=== PATIENT | female | born 1960 | race Caucasian/White ===

== ENCOUNTER 2021-11-15 12:58 | Outpatient (CLI) | payer BC | END 2021-11-15 12:59 | disposition home or self-care (01) | LOC: CSHMRI 12:58 | PROVIDERS: ATTEND Radiology Radiation Oncology | DX: C50.919 Malignant neoplasm of unspecified site of unspecified female breast (principal); C79.51 Secondary malignant neoplasm of bone; R93.7 Abnormal findings on diagnostic imaging of other parts of musculoskeletal system | CPT/HCPCS: 36591; 71260; 74177; 82565; J1642 ==

== ENCOUNTER 2022-05-01 08:23 | Inpatient (IN) | payer BC ==
[2022-05-01 09:38] LABS: SARS-CoV-2 NAA Rapid Test Not Detected (NotDetected)
[2022-05-01 09:39] LABS: Bilirubin Neg (Negative); Blood, Urine 150 (Negative); Clarity Clear (Clear); Glucose, Urine (Dipstick) Normal (Negative); Ketone, Urine Negative (Negative); Leukocyte Negative (Negative); Nitrite Negative (Negative); Protein, Urine (Dipstick) 100 mg/dl (Neg-Trace); Specific Gravity, Urine 1.025 (1.002-1.036); Urobilinogen Normal mg/dL (Less than 2)
[2022-05-01 09:43] LABS: Bacteria/HPF Rare-Few HPF (None Seen); Squamous Epithelial 0-3 HPF (0-3); WBC/HPF None Seen HPF (0-3)
[2022-05-01 09:44] LABS: RBC/HPF 0-3 HPF (0-3)
[2022-05-01 09:45] LABS: Calcium Oxalate Crystals Rare HPF (None Seen)
[2022-05-01] MEDS ORDERED: Acetaminophen 325 MG TAB ONE (10:04)
[2022-05-01] MEDS ORDERED: Ibuprofen 200 MG TAB ONE (10:04)
[2022-05-01 10:07] LABS: Hemoglobin 7.8 g/dL (12.0-15.5); MDiff Complete? YES; Mean Corpuscular HGB CONC 33.6 g/dL (32.0-36.0); Mean Corpuscular Hemoglobin 35.3 pg (27.0-33.0); Mean Platelet Volume 12.1 fl (7.4-10.4); Platelet Count 61 10x3/uL (150-450); RBC Distribution Width 14.7 % (11.5-14.5); Red Blood Cell (RBC) Count 2.21 10x6/uL (3.90-5.03); White Blood Cell (WBC) Count 1.2 10x3/uL (3.5-10.5)
[2022-05-01 10:19] LABS: ALT (SGPT) 23 U/L (8-55); AST (SGOT) 42 U/L (5-34); Albumin 3.2 g/dL (3.4-4.8); Alkaline Phosphatase 71 U/L (40-110); Anion Gap 16 mmol/L (10-20); BUN (Urea Nitrogen) 22 mg/dL (9.8-20.1); Bilirubin, Total 0.4 mg/dL (0.2-1.2); Calc. Creatinine Clearance 0 mL/min (70-130); Calcium 9.1 mg/dL (7.8-10.44); Carbon Dioxide 23 mmol/L (23-31); Chloride 100 mmol/L (98-107); Estimated GFR 49; Globulin 2.8 g/dL (2.4-3.5); Glucose 80 mg/dL (80-115); Sodium 135 mmol/L (136-145)
[2022-05-01 10:41] LABS: Band 1 % (5-11); Lymphocytes 18 % (21-51); Monocytes 14 % (0-10); Myelocyte 2 % (0-0); Neutrophil 58 % (42-75); Nucleated RBC 8 % (0); Reactive Lymphocytes 7 % (0-10)
[2022-05-01 10:50] LABS: Macrocytosis SLIGHT = 6-15 cells (100X) (0-5/hpf); Platelet Morphology Comment Appears Decreased; Reflex for Review?? YES
[2022-05-01] MEDS ORDERED: Cefepime 2 GM VIAL ONE (11:59)
[2022-05-01] MEDS ORDERED: Morphine 4 MG/ML VIAL ONE (12:41)
[2022-05-01] MEDS ORDERED: Iopamidol 370 76% 100 ML VIAL ONE (14:51)
[2022-05-01 16:12] VITALS: BMI 24.4
[2022-05-01] MEDS ORDERED: Acetaminophen 325 MG TAB PO PRN (17:36)
[2022-05-01] MEDS ORDERED: Ondansetron ODT 4 MG TAB PO PRN (17:36)
[2022-05-01] MEDS ORDERED: Ondansetron PF 4 MG/2 ML Vial IVP PRN (17:36)
[2022-05-01] MEDS: diphenhydrAMINE 25 MG CAP PO SCH (21:33)
[2022-05-01] MEDS: Gabapentin 300 MG CAP PO SCH (21:33)
[2022-05-01] MEDS: Simvastatin 10 MG TAB PO SCH (21:33)
[2022-05-01] MEDS: DULoxetine 30 MG CAP PO SCH (21:33)
[2022-05-01] MEDS: clonazePAM 0.5 MG TAB PO SCH (21:34)
[2022-05-01] MEDS: Sodium Chloride 0.9% 1,000 ML IV SCH (21:34)
[2022-05-01] MEDS ORDERED: HYDROcodone/Acetaminophen 5/325 mg Tablet PO PRN (21:57)
[2022-05-01] MEDS: Morphine 4 MG/ML VIAL SLOW IVP PRN (22:15)
[2022-05-02] MEDS: Morphine 4 MG/ML VIAL SLOW IVP PRN ×4 (02:52→19:44)
[2022-05-02 04:48] LABS: Hemoglobin 7.6 g/dL (12.0-15.5); Mean Corpuscular HGB CONC 33.2 g/dL (32.0-36.0); Mean Corpuscular Hemoglobin 34.5 pg (27.0-33.0); Mean Corpuscular Volume 104.1 fl (81.6-98.3); Mean Platelet Volume 11.8 fl (7.4-10.4); Platelet Count 62 10x3/uL (150-450); RBC Distribution Width 14.7 % (11.5-14.5); White Blood Cell (WBC) Count 0.8 10x3/uL (3.5-10.5)
[2022-05-02 05:16] LABS: Anion Gap 14 mmol/L (10-20); BUN (Urea Nitrogen) 19 mg/dL (9.8-20.1); Calc. Creatinine Clearance 45 mL/min (70-130); Carbon Dioxide 25 mmol/L (23-31); Chloride 101 mmol/L (98-107); Estimated GFR 47; Glucose 94 mg/dL (80-115); Potassium 4.4 mmol/L (3.5-5.1); Sodium 136 mmol/L (136-145)
[2022-05-02 07:10] LABS: MDiff Complete? YES
[2022-05-02 07:17] LABS: Band 5 % (5-11); Eosinophils 1 % (0-10); Lymphocytes 13 % (21-51); Metamyelocyte 5 % (0-0); Monocytes 11 % (0-10); Neutrophil 64 % (42-75); Nucleated RBC 1 % (0)
[2022-05-02 07:18] LABS: Anisocytosis SLIGHT = 6-15 cells (100X) (0-5/hpf); Hypochromia SLIGHT = 6-15 cells (100X) (0-5/hpf); Platelet Morphology Comment Appears Decreased; Poikilocytosis SLIGHT = 6-15 cells (100X) (0-5/hpf); Polychromasia SLIGHT = 2-3 cells (100X) (0-2/hpf); Schistocytes SLIGHT = 2-5 cells (100X) (0-1/hpf); Target Cells SLIGHT = 2-5 cells (100X) (0-1/hpf); Tear Drops SLIGHT = 2-5 cells (100X) (0-1/hpf)
[2022-05-02] MEDS: DULoxetine 30 MG CAP PO SCH ×2 (09:09→21:01)
[2022-05-02] MEDS: Azithromycin 250 MG TAB PO SCH (09:10)
[2022-05-02] MEDS: Gabapentin 300 MG CAP PO SCH ×2 (09:12→21:00)
[2022-05-02] MEDS: Docusate 100 MG CAP PO SCH ×2 (09:12→21:01)
[2022-05-02] MEDS: metFORMIN 500 MG TAB PO SCH ×2 (09:12→17:35)
[2022-05-02] MEDS: Cefepime 1 GM in Sodium Chloride 0.9% 100 ML IVPB SCH ×2 (12:20→12:53)
[2022-05-02] MEDS: Sodium Chloride 0.9% 1,000 ML IV SCH (12:54)
[2022-05-02] MEDS: Vancomycin HCl 1 GM in Sodium Chloride 0.9% 250 ML 250 ML IVPB SCH (13:40)
[2022-05-02] MEDS: Simvastatin 10 MG TAB PO SCH (21:00)
[2022-05-02] MEDS: diphenhydrAMINE 25 MG CAP PO SCH (21:01)
[2022-05-02] MEDS: clonazePAM 0.5 MG TAB PO SCH (21:01)
[2022-05-03] MEDS: Cefepime 1 GM in Sodium Chloride 0.9% 100 ML IVPB SCH ×2 (00:13→12:54)
[2022-05-03] MEDS: Morphine 4 MG/ML VIAL SLOW IVP PRN ×6 (00:14→22:12)
[2022-05-03] MEDS: Sodium Chloride 0.9% 1,000 ML IV SCH ×2 (00:14→09:35)
[2022-05-03 05:28] LABS: Hemoglobin 7.4 g/dL (12.0-15.5); Mean Corpuscular HGB CONC 33.3 g/dL (32.0-36.0); Mean Corpuscular Hemoglobin 35.1 pg (27.0-33.0); Mean Corpuscular Volume 105.2 fl (81.6-98.3); Mean Platelet Volume 11.8 fl (7.4-10.4); Platelet Count 65 10x3/uL (150-450); RBC Distribution Width 14.7 % (11.5-14.5); Red Blood Cell (RBC) Count 2.11 10x6/uL (3.90-5.03); White Blood Cell (WBC) Count 1.3 10x3/uL (3.5-10.5)
[2022-05-03 06:07] LABS: Anion Gap 16 mmol/L (10-20); BUN (Urea Nitrogen) 15 mg/dL (9.8-20.1); Calc. Creatinine Clearance 44 mL/min (70-130); Calcium 9.7 mg/dL (7.8-10.44); Carbon Dioxide 24 mmol/L (23-31); Chloride 100 mmol/L (98-107); Estimated GFR 46; Glucose 97 mg/dL (80-115); Potassium 3.9 mmol/L (3.5-5.1); Sodium 136 mmol/L (136-145)
[2022-05-03 06:34] LABS: MDiff Complete? YES; Platelet Morphology Comment Appears Decreased
[2022-05-03 06:41] LABS: Band 19 % (5-11); Lymphocytes 18 % (21-51); Metamyelocyte 4 % (0-0); Monocytes 11 % (0-10); Neutrophil 47 % (42-75); Nucleated RBC 1 % (0)
[2022-05-03 06:42] LABS: Anisocytosis SLIGHT = 6-15 cells (100X) (0-5/hpf); Macrocytosis SLIGHT = 6-15 cells (100X) (0-5/hpf); Microcytosis SLIGHT = 6-15 cells (100X) (0-5/hpf); Poikilocytosis SLIGHT = 6-15 cells (100X) (0-5/hpf); Tear Drops SLIGHT = 2-5 cells (100X) (0-1/hpf)
[2022-05-03] MEDS: Gabapentin 300 MG CAP PO SCH ×2 (09:33→20:19)
[2022-05-03] MEDS: Meloxicam 7.5 MG TAB PO SCH (09:33)
[2022-05-03] MEDS: Azithromycin 250 MG TAB PO SCH (09:34)
[2022-05-03] MEDS: metFORMIN 500 MG TAB PO SCH ×2 (09:34→17:50)
[2022-05-03] MEDS: DULoxetine 30 MG CAP PO SCH ×2 (09:35→20:20)
[2022-05-03] MEDS: Docusate 100 MG CAP PO SCH ×2 (09:35→20:20)
[2022-05-03] MEDS: Vancomycin HCl 1 GM in Sodium Chloride 0.9% 250 ML 250 ML IVPB SCH (12:54)
[2022-05-03 12:56] LABS: Vancomycin, Trough 12.1 ug/mL
[2022-05-03] MEDS: Simvastatin 10 MG TAB PO SCH (20:19)
[2022-05-03] MEDS: diphenhydrAMINE 25 MG CAP PO SCH (20:20)
[2022-05-03] MEDS: clonazePAM 0.5 MG TAB PO SCH (20:20)
[2022-05-04] MEDS: Cefepime 1 GM in Sodium Chloride 0.9% 100 ML IVPB SCH ×2 (01:55→15:00)
[2022-05-04] MEDS: Sodium Chloride 0.9% 1,000 ML IV SCH ×2 (01:56→20:13)
[2022-05-04] MEDS: Morphine 4 MG/ML VIAL SLOW IVP PRN ×6 (01:57→21:38)
[2022-05-04 06:04] LABS: Anion Gap 12 mmol/L (10-20); BUN (Urea Nitrogen) 14 mg/dL (9.8-20.1); Calc. Creatinine Clearance 52 mL/min (70-130); Calcium 9.3 mg/dL (7.8-10.44); Carbon Dioxide 24 mmol/L (23-31); Chloride 106 mmol/L (98-107); Estimated GFR 57; Glucose 125 mg/dL (80-115); Potassium 4.2 mmol/L (3.5-5.1); Sodium 138 mmol/L (136-145)
[2022-05-04 07:09] LABS: Hemoglobin 6.9 g/dL (12.0-15.5); Mean Corpuscular HGB CONC 32.4 g/dL (32.0-36.0); Mean Corpuscular Hemoglobin 33.8 pg (27.0-33.0); Mean Corpuscular Volume 104.4 fl (81.6-98.3); Mean Platelet Volume 11.9 fl (7.4-10.4); Platelet Count 62 10x3/uL (150-450); RBC Distribution Width 14.6 % (11.5-14.5); Red Blood Cell (RBC) Count 2.04 10x6/uL (3.90-5.03); White Blood Cell (WBC) Count 1.4 10x3/uL (3.5-10.5)
[2022-05-04 08:20] LABS: MDiff Complete? YES; Manual Diff?? YES
[2022-05-04] MEDS: Meloxicam 7.5 MG TAB PO SCH (08:58)
[2022-05-04] MEDS: Docusate 100 MG CAP PO SCH ×2 (08:59→21:55)
[2022-05-04] MEDS: Azithromycin 250 MG TAB PO SCH (08:59)
[2022-05-04] MEDS: DULoxetine 30 MG CAP PO SCH ×2 (08:59→21:54)
[2022-05-04] MEDS: metFORMIN 500 MG TAB PO SCH ×2 (08:59→17:18)
[2022-05-04] MEDS: Gabapentin 300 MG CAP PO SCH ×2 (08:59→21:53)
[2022-05-04 09:31] LABS: Band 17 % (5-11); Eosinophils 2 % (0-10); Lymphocytes 15 % (21-51); Metamyelocyte 4 % (0-0); Monocytes 11 % (0-10); Neutrophil 50 % (42-75); Nucleated RBC 1 % (0)
[2022-05-04 09:32] LABS: Anisocytosis SLIGHT = 6-15 cells (100X) (0-5/hpf); Elliptocytes SLIGHT = 2-5 cells (100X) (0-1/hpf); Hypochromia SLIGHT = 6-15 cells (100X) (0-5/hpf); Macrocytosis SLIGHT = 6-15 cells (100X) (0-5/hpf); Microcytosis SLIGHT = 6-15 cells (100X) (0-5/hpf); Platelet Morphology Comment Appears Decreased; Polychromasia SLIGHT = 2-3 cells (100X) (0-2/hpf)
[2022-05-04] MEDS: Vancomycin HCl 1 GM in Sodium Chloride 0.9% 250 ML 250 ML IVPB SCH (16:00)
[2022-05-04] MEDS: clonazePAM 0.5 MG TAB PO SCH (21:53)
[2022-05-04] MEDS: Simvastatin 10 MG TAB PO SCH (21:55)
[2022-05-04] MEDS: diphenhydrAMINE 25 MG CAP PO SCH (21:56)
[2022-05-05] MEDS: Morphine 4 MG/ML VIAL SLOW IVP PRN ×4 (01:39→15:58)
[2022-05-05] MEDS: Cefepime 1 GM in Sodium Chloride 0.9% 100 ML IVPB SCH (02:00)
[2022-05-05 08:07] LABS: Hemoglobin 8.2 g/dL (12.0-15.5); Mean Corpuscular HGB CONC 34.2 g/dL (32.0-36.0); Mean Corpuscular Hemoglobin 33.9 pg (27.0-33.0); Mean Corpuscular Volume 99.2 fl (81.6-98.3); Mean Platelet Volume 10.6 fl (7.4-10.4); Platelet Count 53 10x3/uL (150-450); RBC Distribution Width 17.4 % (11.5-14.5); Red Blood Cell (RBC) Count 2.42 10x6/uL (3.90-5.03); White Blood Cell (WBC) Count 1.7 10x3/uL (3.5-10.5)
[2022-05-05 08:14] LABS: Anion Gap 12 mmol/L (10-20); BUN (Urea Nitrogen) 15 mg/dL (9.8-20.1); Calc. Creatinine Clearance 50 mL/min (70-130); Calcium 9.5 mg/dL (7.8-10.44); Carbon Dioxide 25 mmol/L (23-31); Chloride 104 mmol/L (98-107); Estimated GFR 54; Glucose 143 mg/dL (80-115); Potassium 4.1 mmol/L (3.5-5.1); Sodium 137 mmol/L (136-145)
[2022-05-05 08:27] LABS: MDiff Complete? YES; Manual Diff?? YES
[2022-05-05 08:35] LABS: Band 19 % (5-11); Eosinophils 2 % (0-10); Lymphocytes 15 % (21-51); Metamyelocyte 2 % (0-0); Monocytes 4 % (0-10); Myelocyte 1 % (0-0); Neutrophil 55 % (42-75); Nucleated RBC 2 % (0); Reactive Lymphocytes 1 % (0-10)
[2022-05-05 08:36] LABS: Anisocytosis SLIGHT = 6-15 cells (100X) (0-5/hpf); Platelet Morphology Comment Appears Decreased
[2022-05-05 08:37] LABS: Elliptocytes SLIGHT = 2-5 cells (100X) (0-1/hpf); Hypochromia SLIGHT = 6-15 cells (100X) (0-5/hpf); Macrocytosis SLIGHT = 6-15 cells (100X) (0-5/hpf); Microcytosis SLIGHT = 6-15 cells (100X) (0-5/hpf); Polychromasia SLIGHT = 2-3 cells (100X) (0-2/hpf); Schistocytes SLIGHT = 2-5 cells (100X) (0-1/hpf)
[2022-05-05] MEDS: Gabapentin 300 MG CAP PO SCH (10:56)
[2022-05-05] MEDS: DULoxetine 30 MG CAP PO SCH (10:56)
[2022-05-05] MEDS: Docusate 100 MG CAP PO SCH (10:58)
[2022-05-05] MEDS: Meloxicam 7.5 MG TAB PO SCH (10:58)
[2022-05-05] MEDS: metFORMIN 500 MG TAB PO SCH (10:58)
[2022-05-05 12:28] LABS: Vancomycin, Trough 18.9 ug/mL
[2022-05-05 13:09] VITALS: BP 162/91; TEMP 98
== END 2022-05-05 16:30 | disposition home or self-care (01) | DRG 808 ==
LOC: CSHERS 08:23 → INTOOBSV 15:09 → CSHTELE 15:09 → OBSVTOIN 05-03 12:05
PROVIDERS: ADMIT Hospitalist; ATTEND Family Medicine
PROC: 30233N1 Transfusion of Nonautologous Red Blood Cells into Peripheral Vein, Percutaneous Approach (ICD-10-PCS; principal; 2022-05-03)
DX: D61.810 Antineoplastic chemotherapy induced pancytopenia (principal); J18.9 Pneumonia, unspecified organism; C79.51 Secondary malignant neoplasm of bone; E11.9 Type 2 diabetes mellitus without complications; I10 Essential (primary) hypertension; E78.5 Hyperlipidemia, unspecified; C50.919 Malignant neoplasm of unspecified site of unspecified female breast; Z20.822 Contact with and (suspected) exposure to COVID-19; R50.81 Fever presenting with conditions classified elsewhere; F41.9 Anxiety disorder, unspecified; F32.A Depression, unspecified; T45.1X5A Adverse effect of antineoplastic and immunosuppressive drugs, initial encounter; Z88.8 Allergy status to other drugs, medicaments and biological substances; Z88.2 Allergy status to sulfonamides; Z88.0 Allergy status to penicillin; Z91.040 Latex allergy status; Z79.899 Other long term (current) drug therapy; Z79.84 Long term (current) use of oral hypoglycemic drugs
CPT/HCPCS: 36415; 36416; 36430; 71045; 71275; 80048; 80053; 80202; 81003; 81015; 83605; 85025; 85060; 86850; 86900; 86901; 87040; 87081; 87086; 96376; G0378; J0692; J1956; J2270; J2405; J3370; J3490; J7050; P9016; Q9967; U0002

== ENCOUNTER 2022-06-23 12:26 | Outpatient (CLI) | payer BC | END 2022-06-23 12:27 | disposition home or self-care (01) | LOC: CSHLAB 12:26 | PROVIDERS: ATTEND Internal Medicine Hematology & Oncology | DX: Z20.822 Contact with and (suspected) exposure to COVID-19 (principal); D50.8 Other iron deficiency anemias; D61.818 Other pancytopenia; C50.112 Malignant neoplasm of central portion of left female breast; C79.51 Secondary malignant neoplasm of bone | CPT/HCPCS: 87811 ==

== ENCOUNTER 2022-06-28 08:37 | Day surgery (SDC) | payer BC ==
[2022-06-28] MEDS ORDERED: Fentanyl 100 MCG/2 ML VIAL ONE (09:31)
[2022-06-28] MEDS ORDERED: Lidocaine 1% PF 5 ML VIAL ONE (09:32)
[2022-06-28] MEDS ORDERED: Sodium Bicarbonate 2.5 MEQ/5 ML VIAL ONE (09:33)
[2022-06-28] MEDS ORDERED: Midazolam HCl 5 mg/5 ml Vial ONE (09:33)
[2022-06-28 09:51] VITALS: BP 105/57; TEMP 99
== END 2022-06-28 12:25 | disposition home or self-care (01) ==
LOC: CSHCT 08:37
PROVIDERS: ATTEND Internal Medicine Hematology & Oncology
PROC: 079T3ZX Drainage of Bone Marrow, Percutaneous Approach, Diagnostic (ICD-10-PCS; principal; 2022-06-28)
PROC: 07DR3ZX Extraction of Iliac Bone Marrow, Percutaneous Approach, Diagnostic (ICD-10-PCS; principal; 2022-06-28)
DX: C50.112 Malignant neoplasm of central portion of left female breast (principal); C79.51 Secondary malignant neoplasm of bone; D70.8 Other neutropenia; N18.9 Chronic kidney disease, unspecified; D63.1 Anemia in chronic kidney disease; D50.8 Other iron deficiency anemias
CPT/HCPCS: 36591; 38222; 85097; 85610; 88184; 88237; 88305; 88311; 88313; 88341; 88342; J1642; J2250; J3010